=== PATIENT | female | born 1995 | race Caucasian/White ===

== ENCOUNTER 2022-10-07 10:58 | Day surgery (SDC) | payer BC ==
[2022-10-05 15:18] VITALS: BMI 25.0
[2022-10-07] MEDS ORDERED: Methylergonovine 0.2 MG/ML VIAL ONE (11:47)
[2022-10-07] MEDS ORDERED: PROPOFOL 20 ML ONE (11:50)
[2022-10-07] MEDS ORDERED: Fentanyl 100 MCG/2 ML VIAL ONE (11:50)
[2022-10-07] MEDS ORDERED: Midazolam HCl 2 mg/2 ml Vial ONE (11:51)
[2022-10-07] MEDS ORDERED: Ondansetron PF 4 MG/2 ML Vial ONE (11:51)
[2022-10-07] MEDS ORDERED: Dexamethasone 20 MG/5 ML VIAL ONE (11:51)
[2022-10-07] MEDS ORDERED: Glycopyrrolate 0.2 MG/ML 5 ML SYRINGE ONE (11:51)
[2022-10-07] MEDS ORDERED: Ketorolac Tromethamine 30 MG/ML VIAL ONE (11:51)
[2022-10-07] MEDS ORDERED: Lidocaine 1% PF 5 ML VIAL ONE (11:53)
[2022-10-07] MEDS ORDERED: CEFAZOLIN 1 GM VIAL ONE (11:54)
[2022-10-07] MEDS ORDERED: Acetaminophen 500 MG TAB ONE (13:23)
== END 2022-10-07 14:05 | disposition home or self-care (01) ==
LOC: CSHSDC 10:58
PROVIDERS: ATTEND Obstetrics & Gynecology
PROC: 10D07Z8 Extraction of Products of Conception, Other, Via Natural or Artificial Opening (ICD-10-PCS; principal; 2022-10-07)
DX: O02.0 Blighted ovum and nonhydatidiform mole (principal)
CPT/HCPCS: 88305; J0690; J1100; J1885; J2210; J2250; J2405; J2704; J3010